=== PATIENT | female | born 1935 | race Caucasian/White ===

== ENCOUNTER 2020-12-06 20:43 | Emergency (ER) | payer MEDICARE ==
[~2020-12-06 20:43] MED LIST: ASPIR 8181 MG PO; CENTRUM SILVER1 EAC1 PO; FISH OIL 1,2001 EACH PO; IRON325 M1 PO; LIPITOR20 MG PO; LOSARTAN-HCTZ1 EAC2 PO; NORVASC5 MG PO; SYNTHROID50 MCG PO; TIMOLOL 0.5%-DO10 ML EYEBOTH; ULTRAM50 MG PO; VITAMIN D32000 UNI1 PO
== END 2020-12-07 00:30 | disposition home or self-care (01) ==
LOC: FER 20:43
DX: S00.03XA Contusion of scalp, initial encounter (principal); S40.012A Contusion of left shoulder, initial encounter; S40.011A Contusion of right shoulder, initial encounter; S70.02XA Contusion of left hip, initial encounter; S70.01XA Contusion of right hip, initial encounter; M54.2 Cervicalgia; I10 Essential (primary) hypertension; Z79.899 Other long term (current) drug therapy; Z79.82 Long term (current) use of aspirin; W10.9XXA Fall (on) (from) unspecified stairs and steps, initial encounter; Y92.009 Unspecified place in unspecified non-institutional (private) residence as the place of occurrence of the external cause
CPT/HCPCS: 70450; 72125; 73030; 73522

== ENCOUNTER 2021-01-17 13:07 | Day surgery (SDCO) | payer MEDICARE ==
[2021-01-17 14:47] LABS: BILIRUBIN NEGATIVE (NEGATIVE); BLOOD 1+ Ery/uL (NEGATIVE); CLARITY CLOUDY (CLEAR); COLOR YELLOW (YELLOW); GLUCOSE (U) NORMAL (NORMAL); LEUKOCYTES 3+ Leu/uL (NEGATIVE); NITRITE POSITIVE (NEGATIVE); PROTEIN TRACE (LOW) mg/dL (NEGATIVE); UROBILINOGEN 0.2 mg/dL (0.2-1.0); pH 6.5 (5.0-9.0)
[2021-01-17 15:01] LABS: URINARY WBC TNTC
[2021-01-17 15:02] LABS: BACTERIA 4+; SQUAMOUS EPITHELIAL CELLS RARE
[2021-01-17 15:10] LABS: BASOPHIL 0.6 % (0-2); EOSINOPHIL 0.6 % (0-7); HCT 36.5 % (37.0-47.0); HGB 12.1 g/dl (12.5-16.0); LYMPHOCYTE 6.4 % (15-48); MCH 33.5 pg (25.0-31.0); MCHC 33.2 g/dL (32.0-36.0); MCV 101.1 fL (78.0-100.0); MONOCYTE 14.4 % (0-12); MPV 9.4 fL (6.0-9.5); NEUTROPHIL 77.7 % (41-80); NRBC 0; PLT 195 K/uL (150-400); RBC 3.61 M/uL (4.20-5.40); RDW 13.8 % (11.5-14.0); WBC 7.2 K/uL (4.0-10.5)
[2021-01-17 15:27] LABS: INR 1.09 (0.9-1.2); PROTHROMBIN TIME 13.4 SECONDS (11.4-13.6)
[2021-01-17 15:28] LABS: PTT 32.6 SECONDS (22.2-34.7)
[2021-01-17 15:35] LABS: IRON % SATURATION 6.8 %SAT (20-50)
[2021-01-17 15:44] LABS: PRO-BNP 749 pg/mL (<450)
[2021-01-17 15:52] LABS: ALBUMIN 3.3 g/dL (3.4-5.0); BILIRUBIN - TOTAL 0.5 mg/dL (0.2-1.0); BUN/CREAT RATIO (CALC) 27.7 RATIO; C-REACTIVE PROTEIN 6.4 mg/dL (<=0.90); CREATININE 0.83 mg/dL (0.51-0.95); GLOBULIN (CALCULATION) 3.9 g/dL; MAGNESIUM 2.1 mg/dL (1.8-2.4); POTASSIUM 3.9 mmol/L (3.5-5.1); TOTAL PROTEIN 7.2 g/dL (6.4-8.2)
[2021-01-17 18:17] LABS: LACTIC ACID 1.2 mmol/L (0.4-1.9)
[2021-01-17 18:35] LABS: CORONAVIRUS 2019 SARS-COV-2 NEGATIVE (NEGATIVE); INFLUENZA A NAA NEGATIVE (NEGATIVE)
[2021-01-18 06:31] LABS: BASOPHIL 0.5 % (0-2); EOSINOPHIL 0.7 % (0-7); HCT 31.9 % (37.0-47.0); HGB 10.5 g/dl (12.5-16.0); LYMPHOCYTE 8.8 % (15-48); MCHC 32.9 g/dL (32.0-36.0); MCV 100.3 fL (78.0-100.0); NEUTROPHIL 74.7 % (41-80); NRBC 0; PLT 163 K/uL (150-400); RBC 3.18 M/uL (4.20-5.40); RDW 13.8 % (11.5-14.0); WBC 6.1 K/uL (4.0-10.5)
[2021-01-18 07:29] LABS: ALBUMIN 2.8 g/dL (3.4-5.0); BILIRUBIN - TOTAL 0.4 mg/dL (0.2-1.0); CREATININE 0.63 mg/dL (0.51-0.95); GLOBULIN (CALCULATION) 3.5 g/dL; POTASSIUM 3.6 mmol/L (3.5-5.1); TOTAL PROTEIN 6.3 g/dL (6.4-8.2); URIC ACID 3.2 mg/dL (2.6-6.2)
[2021-01-18] MEDS ORDERED: TIMOLOL MALEAT1 EACH OU (14:09)
--- NOTE | 2021-01-18 15:07 | NUR ---
01/18/21 Ms. Young was oriented to name, , and place. She did display difficulty with making choices and requested for her daughter, Dottie Tao ([phone]) to be consulted. Ms. Young lives alone. She has a rw, cane, 3in1, and s. chair. José has recommended SNF. - Dottie Salazar would like her mother to go to [facility] for skilled care; 2nd snds 3rd choices [facility] and [facility]. - [facility] has agreed to accept patient pending insurance approval.
[2021-01-19 06:17] LABS: BASOPHIL 0.5 % (0-2); EOSINOPHIL 1.7 % (0-7); HCT 31.6 % (37.0-47.0); HGB 10.4 g/dl (12.5-16.0); MCH 33.2 pg (25.0-31.0); MCHC 32.9 g/dL (32.0-36.0); MONOCYTE 15.3 % (0-12); MPV 9.7 fL (6.0-9.5); NEUTROPHIL 71.3 % (41-80); NRBC 0; PLT 166 K/uL (150-400); RBC 3.13 M/uL (4.20-5.40); RDW 13.7 % (11.5-14.0); WBC 5.7 K/uL (4.0-10.5)
[2021-01-19 06:54] LABS: BUN/CREAT RATIO (CALC) 25.4 RATIO; CREATININE 0.67 mg/dL (0.51-0.95); MAGNESIUM 2.1 mg/dL (1.8-2.4); POTASSIUM 3.6 mmol/L (3.5-5.1)
--- NOTE | 2021-01-19 17:54 | NUR ---
PT LEAVING TO GO TO [facility], IV REMOVED F/C REMOVED.
[2021-01-19] MEDS ORDERED: CEFDINIR300 MG PO (18:05)
[2021-01-19] MEDS ORDERED: POLY-IRON150 MG PO (18:05)
--- NOTE | 2021-01-19 19:06 | NUR ---
@1820 CALLED REPORT TO ALINA LARIOS AT [facility]. PT GOING BY PRIVATE CAR WITH DAUGHTER. PAPER WORK SENT WITH PATIENT.
--- NOTE | 2021-01-19 19:29 | NUR ---
REPORT GIVEN TO BREA HUERTAS .
--- NOTE | 2021-01-22 10:50 | NUR ---
01/22/21 Patient was discharged to [facility] on 01/19/21.
== END 2021-01-19 19:40 ==
LOC: FER 13:07 → FMS 17:08
PROVIDERS: Emergency Medicine; Nurse Practitioner; ADMIT Internal Medicine
DX: A41.50 Gram-negative sepsis, unspecified (principal); N30.00 Acute cystitis without hematuria; G93.41 Metabolic encephalopathy; I25.10 Atherosclerotic heart disease of native coronary artery without angina pectoris; I10 Essential (primary) hypertension; D50.9 Iron deficiency anemia, unspecified; M25.561 Pain in right knee; F03.90 Unspecified dementia, unspecified severity, without behavioral disturbance, psychotic disturbance, mood disturbance, and anxiety; K21.9 Gastro-esophageal reflux disease without esophagitis; E03.9 Hypothyroidism, unspecified; H35.30 Unspecified macular degeneration; Z20.822 Contact with and (suspected) exposure to COVID-19; Z88.1 Allergy status to other antibiotic agents; Z85.3 Personal history of malignant neoplasm of breast; Z87.39 Personal history of other diseases of the musculoskeletal system and connective tissue; Z88.0 Allergy status to penicillin; Z87.19 Personal history of other diseases of the digestive system; Z98.890 Other specified postprocedural states; Z90.49 Acquired absence of other specified parts of digestive tract; Z90.13 Acquired absence of bilateral breasts and nipples
CPT/HCPCS: 36415; 71045; 73560; 80048; 80053; 81001; 82550; 83540; 83550; 83605; 83690; 83735; 83880; 84145; 84443; 84484; 84550; 85025; 85610; 85730; 86140; 87040; 87076; 87088; 87186; 96365; 97162; 97166; 97530; 97530-GP; 97535; G0378; J0696; J1650; J1885; J2916; J7030; U0002

== ENCOUNTER 2021-11-29 12:20 | Emergency (ER) | payer MEDICARE ==
[~2021-11-29 12:20] MED LIST changes: +CEFDINIR300 MG PO; +POLY-IRON150 MG PO; +TIMOLOL MALEAT1 EACH OU
== END 2021-11-29 15:01 | disposition home or self-care (01) ==
LOC: FER 12:20
DX: S01.81XA Laceration without foreign body of other part of head, initial encounter (principal); I10 Essential (primary) hypertension; Z23 Encounter for immunization; Z79.82 Long term (current) use of aspirin; Z79.899 Other long term (current) drug therapy; Z88.1 Allergy status to other antibiotic agents; Z88.2 Allergy status to sulfonamides; Z88.8 Allergy status to other drugs, medicaments and biological substances; W19.XXXA Unspecified fall, initial encounter; Y92.009 Unspecified place in unspecified non-institutional (private) residence as the place of occurrence of the external cause
CPT/HCPCS: 70450; 90471; 90715